=== PATIENT | female | born 1945 | race Caucasian/White ===

== ENCOUNTER 2016-11-30 09:40 | Outpatient (CLI) | payer MEDICARE, OTHER ==
[2016-11-30 13:06] LABS: BASOPHILS % (AUTO) 0.6 %; EOSINOPHILS # (AUTO) 0.1 10^3/uL (0.0-0.7); EOSINOPHILS % (AUTO) 1.5 %; HGB - HEMOGLOBIN 12.5 g/dL (12.0-16.0); LYMPHOCYTES % (AUTO) 30.8 %; MEAN CORPUSCULAR HGB CONC 33.9 g/dL (32.0-36.0); MEAN CORPUSCULAR VOLUME 88.5 fL (81.0-99.0); MEAN PLATELET VOLUME 8.2 fL (7.9-10.8); MONOCYTES # (AUTO) 0.4 10^3/uL (0.0-1.0); NEUTROPHILS # (AUTO) 3.9 10^3/uL (1.5-6.6); NEUTROPHILS % (AUTO) 61.1 %; NUCLEATED RED BLOOD CELLS AUTO 0.1 /100WBC; RED BLOOD COUNT 4.18 10^6/uL (4.20-5.40); RED CELL DISTRIBUTION WIDTH 13.3 % (12.0-15.0); UNCORRECTED WHITE BLOOD COUNT 6.4 x10^3/uL; WHITE BLOOD COUNT 6.4 x10^3/uL (4.8-10.8)
[2016-11-30 14:00] LABS: ALBUMIN/GLOBULIN RATIO 1.6 (1.0-2.2); BUN - BLOOD UREA NITROGEN 18 mg/dL (6-20); CALCIUM 9.3 mg/dL (8.5-10.3); CARBON DIOXIDE - CO2 27 mmol/L (21-32); CHLORIDE 105 mmol/L (101-111); CHOL/HDL RATIO 3.3 (<4.4); CHOLESTEROL 190 mg/dL; CREATININE 0.6 mg/dL (0.4-1.0); GFR - MDRD 99 (>89); GLUCOSE 90 mg/dL (70-100); HDL CHOLESTEROL 57 mg/dL; LDL/HDL RATIO 1.9 (<4.4); POTASSIUM 4.2 mmol/L (3.5-5.0); SODIUM 140 mmol/L (135-145); TOTAL PROTEIN 7.5 g/dL (6.7-8.2); TRIGLYCERIDES 125 mg/dL; VLDL CHOLESTEROL 25 mg/dL
== END 2016-11-30 09:41 | disposition home or self-care (01) ==
LOC: LAB.WCP 09:40
PROVIDERS: ATTEND Family Medicine
DX: M85.80 Other specified disorders of bone density and structure, unspecified site (principal)
CPT/HCPCS: 36415; 80053; 80061; 85025

== ENCOUNTER 2016-12-10 08:13 | Outpatient (CLI) | payer MEDICARE, OTHER ==
--- NOTE | 2016-12-11 15:37 | Mammography Report ---
DIGITAL SCREENING MAMMOGRAM: 12/10/2016 CLINICAL INDICATION: A 71-year-old nulliparous patient with history of bilateral augmentation for sc reening. COMPARISON: 12/2015, 05/2014, 04/2012, 04/2011. TECHNIQUE: Routine CC and MLO projections were obtained of the breasts as well as bilateral implant displaced views. FINDINGS: The breasts again demonstrate heterogeneously dense fibroglandular parenchyma bilaterally. Coarse, typically benign calcifications are present. Bilateral subpectoral silicone implants are s table. No suspicious masses, clustered microcalcifications, or regions of architectural distortion a re identified. IMPRESSION: BENIGN FINDINGS. RECOMMENDATION: Routine annual screening unless otherwise clinically indicated. BI-RADS category 2, benign findings. STANDARD QUALIFYING STATEMENTS 1. This examination was reviewed with the aid of Computer-Aided Detection (CAD). 2. A negative or benign imaging report should not delay biopsy if clinically suspicious findings are present. Consider surgical consultation if warranted. More than 5% of cancers are not identified by i maging. 3. Dense breasts may obscure an underlying neoplasm. JOB #: [id number] EXT JOB #:[id number]
== END 2016-12-10 08:14 | disposition home or self-care (01) ==
LOC: DI 08:13
PROVIDERS: ATTEND Family Medicine
DX: Z12.31 Encounter for screening mammogram for malignant neoplasm of breast (principal)
CPT/HCPCS: 77067

== ENCOUNTER 2017-11-16 09:34 | Outpatient (CLI) | payer MEDICARE, OTHER ==
[2017-11-16 13:49] LABS: BASOPHILS % (AUTO) 0.7 %; EOSINOPHILS # (AUTO) 0.2 10^3/uL (0.0-0.7); EOSINOPHILS % (AUTO) 2.4 %; HGB - HEMOGLOBIN 12.4 g/dL (12.0-16.0); LYMPHOCYTES # (AUTO) 2.2 10^3/uL (1.5-3.5); LYMPHOCYTES % (AUTO) 34.8 %; MEAN CORPUSCULAR HGB CONC 34.4 g/dL (32.0-36.0); MEAN CORPUSCULAR VOLUME 87.3 fL (81.0-99.0); MEAN PLATELET VOLUME 7.9 fL (7.9-10.8); MONOCYTES # (AUTO) 0.4 10^3/uL (0.0-1.0); NEUTROPHILS # (AUTO) 3.5 10^3/uL (1.5-6.6); NEUTROPHILS % (AUTO) 56.1 %; PLT - PLATELET COUNT 281 10^3/uL (130-450); RED BLOOD COUNT 4.14 10^6/uL (4.20-5.40); RED CELL DISTRIBUTION WIDTH 13.2 % (12.0-15.0); WHITE BLOOD COUNT 6.3 x10^3/uL (4.8-10.8)
[2017-11-16 14:30] LABS: ALBUMIN/GLOBULIN RATIO 1.2 (1.0-2.2); ALKALINE PHOSPHATASE 60 IU/L (42-121); ALT ALANINE AMINOTRANSFERASE 14 IU/L (10-60); AST ASPARTATE AMINOTRANSFERASE 19 IU/L (10-42); BILIRUBIN,TOTAL 1.1 mg/dL (0.2-1.0); BUN - BLOOD UREA NITROGEN 19 mg/dL (6-20); CALCIUM 9.1 mg/dL (8.5-10.3); CARBON DIOXIDE - CO2 27 mmol/L (21-32); CHLORIDE 104 mmol/L (101-111); CHOL/HDL RATIO 3.3 (<4.4); CHOLESTEROL 208 mg/dL; CREATININE 0.7 mg/dL (0.4-1.0); GFR - MDRD 82 (>89); GLUCOSE 88 mg/dL (70-100); HDL CHOLESTEROL 64 mg/dL; LDL CHOLESTEROL,CALCULATED 125 mg/dL; SODIUM 137 mmol/L (135-145); TOTAL PROTEIN 7.3 g/dL (6.7-8.2); VLDL CHOLESTEROL 19 mg/dL
== END 2017-11-16 09:35 | disposition home or self-care (01) ==
LOC: LAB.WCP 09:34
PROVIDERS: ATTEND Family Medicine
DX: M89.9 Disorder of bone, unspecified (principal); E78.5 Hyperlipidemia, unspecified; Z79.899 Other long term (current) drug therapy
CPT/HCPCS: 36415; 80053; 80061; 83721; 85025

== ENCOUNTER 2017-12-15 09:04 | Outpatient (CLI) | payer MEDICARE, OTHER ==
--- NOTE | 2017-12-16 17:09 | Mammography Report ---
Procedure Date: 12/15/2017 Accession Number: [id number] / [id number] Procedure: MGN - Screening Mammo Dig w/Implants CPT Code: FULL RESULT: EXAM: Screening Mammo Dig w/Implants DATE: 12/15/2017 9:46 AM CLINICAL HISTORY: 72-year-old nulliparous female with silicone breast implants. TECHNIQUE: Bilateral CC and MLO views were obtained. Bilateral implant displaced views in CC and MLO projections were also obtained. COMPARISON: 12/10/2016, 12/26/2015, 05/15/2014, 04/15/2012. FINDINGS: The breasts demonstrate heterogeneously dense fibroglandular parenchyma bilaterally. Breast implants appear intact throughout the visualized portion. Coarse typically benign breast calcifications are seen on the right. No suspicious masses, clustered microcalcifications, or regions of architectural distortion are identified. IMPRESSION: Benign findings RECOMMENDATION: Routine annual screening unless otherwise clinically indicated. BIRADS CATEGORY 2: Benign findings STANDARD QUALIFYING STATEMENTS: 1. This examination was reviewed with the aid of Computer-Aided Detection (CAD). 2. A negative or benign imaging report should not delay biopsy if clinically suspicious findings are present. Consider surgical consultation if warrented. More than 5% of cancers are not identified by imaging. 3. Dense breasts may obscure an underlying neoplasm.
== END 2017-12-15 09:05 | disposition home or self-care (01) ==
LOC: DI.N 09:04
PROVIDERS: ATTEND Radiology Diagnostic Radiology
DX: Z12.31 Encounter for screening mammogram for malignant neoplasm of breast (principal); Z98.82 Breast implant status
CPT/HCPCS: 77067

== ENCOUNTER 2017-12-27 09:59 | Outpatient (CLI) | payer MEDICARE, OTHER ==
--- NOTE | 2017-12-27 12:30 | DEXA Report ---
Reason: BONE DISORDER Procedure Date: 12/27/2017 Accession Number: [id number] / [id number] Procedure: DEX - Dexa Spine and/or Hip CPT Code: FULL RESULT: EXAM: DUAL EMISSION X-RAY ABSORPTIOMETRY (DXA) SCAN EXAM DATE: 12/27/2017 10:28 AM. CLINICAL HISTORY: 72-year-old, right-handed female with history of osteoporosis in her mother. COMPARISON: BONE DENSITY COMPLETE 12/26/2015. ADDITIONAL PATIENT INFORMATION: No history of high-risk medications. TECHNIQUE: Dual energy x-ray absorptiometry (DXA) was performed on a [employer] System. Regions measured at the AP spine, femoral neck, and if needed, forearm. TECHNIQUE LIMITATIONS/EXCLUSIONS: Adequate technique. FINDINGS: Lumbar Spine: Bone mineral density 0.968 g/sq cm, T-score -1.8, Z-score -0.5. Bone mineral density change from previous: -1.7%. Femoral Neck: Bone mineral density 0.817 g/sq cm, T-score -1.6, Z-score -0.1. Total Hip: Bone mineral density 0.870 g/sq cm, T-score -1.1, Z-score 0.2. Bone mineral density change from previous: 0.9%. Least significant change (LSC): Spine: 0.022 g/cm2, Hip: 0.027 g/cm2, Forearm: 0.015 g/cm2 IMPRESSION: Osteopenia. World Health Organization (WHO) Reporting guidelines (based on lowest BMD) for postmenopausal and perimenopausal women, men age 50 years and older: Normal: T-score at or greater than -1.0 Osteopenia: T-score between -1.1 to -2.4 Osteoporosis: T-score at or less than -2.5 RADIA
== END 2017-12-27 10:00 | disposition home or self-care (01) ==
LOC: DI 09:59
PROVIDERS: ATTEND Family Medicine
DX: M85.89 Other specified disorders of bone density and structure, multiple sites (principal); Z82.62 Family history of osteoporosis
CPT/HCPCS: 77080

== ENCOUNTER 2018-02-05 10:04 | Emergency (ER) | payer MEDICARE, OTHER ==
[2018-02-05 10:51] LABS: BILIRUBIN,URINE NEGATIVE (NEGATIVE); KETONES,URINE (UA) TRACE mg/dL (NEGATIVE); LEUKOCYTE ESTERASE, URINE NEGATIVE (NEGATIVE); PH,URINE 5.5 PH (5.0-7.5)
[2018-02-05 10:56] LABS: CLARITY,URINE CLEAR (CLEAR)
[2018-02-05 10:59] LABS: BACTERIA,URINE Rare /HPF (None Seen); SQUAMOUS EPITHELIAL CELL,UR RARE Squamous (<= Few)
--- NOTE | 2018-02-05 11:17 | ED Physician Documentation ---
PD HPI FEMALE - Stated complaint Stated Complaint: FEMALE - Chief complaint Chief Complaint: UTI - History obtained from History obtained from: Patient, Family - History of Present Illness Timing - onset: How many weeks ago (3) Timing - duration: Weeks (3) Timing - details: Gradual onset, Still present, Waxing and waning Associated symptoms: Back pain, Dysuria, Urinary frequency Similar symptoms before: Diagnosis (UTI) Recently seen: Clinic - Additional information Additional information: 72-year-old female with a history of urinary tract infections previously has done well for the past 6 years and about 3 weeks ago she developed symptoms she took a course of antibiotic empirically and had some resolution of her symptoms. Within a week to 10 days she had recurrence of symptoms with urinary urgency and right flank pain. She went into see her primary care doctor and had a urinalysis done which was normal. She has been given some medication for her overactive bladder and this does not seem to have helped. She took a dose of pyridium this morning and vomited. She states that this morning she has had severe flank pain an 8 out of 10. Review of Systems Constitutional: denies: Fever Eyes: denies: Decreased vision Ears: denies: Ear pain Nose: denies: Congestion Throat: denies: Sore throat Cardiac: denies: Chest pain / pressure, Palpitations Respiratory: denies: Dyspnea, Cough GI: reports: Abdominal Pain, Nausea, Vomiting : reports: Dysuria, Frequency Skin: denies: Rash Musculoskeletal: reports: Back pain. denies: Neck pain, Extremity pain, Joint pain Neurologic: denies: Generalized weakness, Focal weakness, Numbness PD PAST MEDICAL HISTORY - Past Medical History Past Medical History: Yes Cardiovascular: High cholesterol Respiratory: None Endocrine/Autoimmune: None GI: Colon polyps : None HEENT: None Psych: None Musculoskeletal: None Derm: None - Past Surgical History Past Surgical History: Yes General: Colonoscopy Ortho: Other - Present Medications Home Medications: Ambulatory Orders Medication Instructions Recorded Confirmed RX: Pravastatin Sodium 40 mg PO QPM 01/11/15 02/05/18 Nitrofurantoin Monohyd/M-Cryst 1 cap PO BID 02/05/18 02/05/18 [Macrobid 100 mg Capsule] Phenazopyridine HCl [Pyridium] 1 tab PO BID PRN 02/05/18 02/05/18 RX: Oxybutynin [Ditropan] 1 tab PO DAILY 10/06/18 10/06/18 - Allergies Allergies/Adverse Reactions: Allergies Allergy/AdvReac Type Severity Reaction Status Date / Time No Known Drug Allergies Allergy Verified 02/05/18 10:33 - Social History Does the pt smoke?: No Smoking Status: Never smoker Does the pt drink ETOH?: Yes ETOH Use: Wine Does the pt have substance abuse?: No - Immunizations Immunizations are current?: Yes PD ED PE NORMAL - Vitals Vital signs reviewed: Yes (systolic hypertension ) - General General: Alert and oriented X 3, No acute distress, Well developed/nourished - HEENT HEENT: Atraumatic, PERRL, EOMI - Neck Neck: Supple, no meningeal sign - Cardiac Cardiac: RRR, No murmur - Respiratory Respiratory: No respiratory distress, Clear bilaterally - Abdomen Abdomen: Soft, Non tender - Back Back: No CVA TTP, No spinal TTP - Derm Derm: Normal color, Warm and dry, No rash - Extremities Extremities: No deformity, No edema - Neuro Neuro: Alert and oriented X 3, chemical pumper 2-12 intact, No motor deficit, No sensory deficit, Normal speech Eye Opening: Spontaneous Motor: Obeys Commands Verbal: Oriented GCS Score: 15 - Psych Psych: Normal mood, Normal affect Results - Vitals Vitals: Vital Signs - 24 hr 02/05/18 10:25 Temperature 36.0 C L Heart Rate 72 Respiratory 17 Rate Blood Pressure 145/56 H O2 Saturation 100 Oxygen O2 Source Room air - Labs Labs: Laboratory Tests 02/05/18 10:47 Urine Color ORANGE Urine Clarity CLEAR Urine pH 5.5 Ur Specific [place] 1.020 Urine Protein Not Reportable Urine Glucose (UA) Not Reportable Urine Ketones TRACE Urine Occult Blood Not Reportable Urine Nitrite Not Reportable Urine Bilirubin NEGATIVE Urine Urobilinogen Not Reportable Ur Leukocyte Esterase NEGATIVE Urine RBC 6-10 H Urine WBC 0-3 Ur Squamous Epith Cells RARE Squamous Urine Bacteria Rare Ur Microscopic Review INDICATED Urine Culture Comments Not Reportable - Rads (name of study) CT ab/pel without Radiology: Prelim report reviewed (Impression: 1. 4 mm right UVJ calculus with upstream acute hydroureternephrosis. 2Small nonobstructing left renal calculi. 3Diverticulosis. 4 Other findings as noted above.), EMP read indepedently, See rad report Procedures - Bedside sono Bedside sono by EMP: With use of bedside ultrasound the right kidney is imaged it is sonographically nontender and there is obvious hydronephrosis. The bladder is examined and it is not over distended. PD MEDICAL DECISION MAKING - ED course Complexity details: reviewed old records, reviewed results, re-evaluated patient, considered differential, d/w patient, d/w family ED course: 72-year-old female with a history of rheumatoid arthritis has developed symptoms of urinary tract infection with urinary urgency and frequency and she has pain in her right flank as well. She is found to have hydronephrosis on bedside ultrasound exam and a stone in the right ureterovesicular junction. Her urine is negative for evidence of infection. She is treated here in the emergency department with a liter of saline and 30 mg of Toradol intravenously. She does have Tylenol with codeine at home she will use this for pain control and have discussed with her reasons to return to the emergency department especially if she develops fever and reasons to consult with a urologist if her stone does not pass in the next several days. - Sepsis Event Vital Signs: Vital Signs - 24 hr 02/05/18 10:25 Temperature 36.0 C L Heart Rate 72 Respiratory 17 Rate Blood Pressure 145/56 H O2 Saturation 100 Oxygen O2 Source Room air Departure - Departure Disposition: 01 Home, Self Care Clinical Impression: Ureterolithiasis Instructions: ED Stone Renal W Colic Follow-Up: Alfred Hayden DO [Primary Care Provider] - Comments: Take your Tylenol with codeine as needed for pain. Drink lots of extra fluids and expect your stone to pass within this week. If you continue to have pain by the middle of next week start trying to get a hold of a urologist for follow-up. If you develop a fever this is not expected and you should return to the ED. Discharge Date/Time: 02/05/18 13:29
[2018-02-05 12:11] LABS: BASOPHILS # (AUTO) 0.1 10^3/uL (0.0-0.1); BASOPHILS % (AUTO) 0.6 %; EOSINOPHILS % (AUTO) 0.1 %; HGB - HEMOGLOBIN 12.8 g/dL (12.0-16.0); LYMPHOCYTES # (AUTO) 0.9 10^3/uL (1.5-3.5); LYMPHOCYTES % (AUTO) 5.9 %; MEAN CORPUSCULAR HEMOGLOBIN 29.6 pg (27.0-31.0); MEAN CORPUSCULAR HGB CONC 33.9 g/dL (32.0-36.0); MEAN CORPUSCULAR VOLUME 87.5 fL (81.0-99.0); MEAN PLATELET VOLUME 7.4 fL (7.9-10.8); MONOCYTES # (AUTO) 0.4 10^3/uL (0.0-1.0); MONOCYTES % (AUTO) 2.6 %; NEUTROPHILS % (AUTO) 90.8 %; PLT - PLATELET COUNT 286 10^3/uL (130-450); RED BLOOD COUNT 4.33 10^6/uL (4.20-5.40); RED CELL DISTRIBUTION WIDTH 13.5 % (12.0-15.0); WHITE BLOOD COUNT 15.4 x10^3/uL (4.8-10.8)
[2018-02-05 12:23] LABS: ALBUMIN 4.8 g/dL (3.2-5.5); ALBUMIN/GLOBULIN RATIO 1.5 (1.0-2.2); BILIRUBIN,TOTAL 0.6 mg/dL (0.2-1.0); CALCIUM 9.1 mg/dL (8.5-10.3); CREATININE 0.8 mg/dL (0.4-1.0); TOTAL PROTEIN 7.9 g/dL (6.7-8.2)
[2018-02-05] MEDS ORDERED: KETOROLAC 60 MG/2 ML VIAL IVP STA (12:49)
--- NOTE | 2018-02-05 12:54 | CT Report ---
Reason: R flank pain hydro on bedside hematuria Procedure Date: 02/05/2018 Accession Number: [id number] / [id number] Procedure: CT - Abdomen/Pelvis W/O CPT Code: FULL RESULT: EXAM: CT ABDOMEN AND PELVIS EXAM DATE: 02/05/2018 12:21 PM. CLINICAL HISTORY: R flank pain hydro on bedside hematuria. COMPARISONS: None. TECHNIQUE: Routine helical CT imaging was performed through the abdomen and pelvis. IV contrast: None. Enteric contrast: No. Reconstructions: Coronal and sagittal. In accordance with CT protocol optimization, one or more of the following dose reduction techniques were utilized for this exam: automated exposure control, adjustment of mA and/or KV based on patient size, or use of iterative reconstructive technique. FINDINGS: Lung Bases: Clear. No pericardial effusion. Partially imaged breast prostheses. Liver: Discrete 13 mm segment 4 hypodensity, nonspecific but possibly cyst. Ultrasound could be performed for confirmation. There is an additional tiny hypodensity in segment 5 (3/25), also nonspecific but possibly cyst. Gallbladder/Bile Ducts: Unremarkable. Spleen: Normal. Pancreas: Normal. Adrenal Glands: Normal. Kidneys: Tiny nonobstructing left renal calculi measuring 3 mm at the lower pole and 2 mm at the midpole. No left hydronephrosis or contour deforming mass. There is moderate right hydronephrosis and mild hydroureter. There is asymmetric mild to moderate right perinephric stranding. There is a 4 mm calculus at the right UVJ. Peritoneal Cavity/Bowel: No free air or free fluid. There is sigmoid diverticulosis without focal evidence of acute diverticulitis. The appendix is well visualized and normal. Pelvic Organs: Bladder is decompressed. Uterus is absent. Adnexal structures are unremarkable. Vasculature: No aneurysms or other significant abnormality. Scattered atherosclerotic arterial calcifications. Bones: No significant abnormality. Other: None. IMPRESSION: 1. 4 mm right UVJ calculus with upstream acute hydroureteronephrosis. 2. Small nonobstructing left renal calculi. 3. Diverticulosis. 4. Other findings as noted above. RADIA
[2018-02-05 13:25] VITALS: BP 139/51
== END 2018-02-05 13:29 | disposition home or self-care (01) ==
LOC: ED 10:04
DX: N13.2 Hydronephrosis with renal and ureteral calculous obstruction (principal)
CPT/HCPCS: 36415; 74176; 80053; 81001; 81003; 83690; 85025; 87086; 96374; 99283; 99284

== ENCOUNTER 2018-12-06 10:01 | Outpatient (CLI) | payer MEDICARE, OTHER ==
[2018-12-06 10:18] LABS: BASOPHILS % (AUTO) 0.2 %; EOSINOPHILS # (AUTO) 0.1 10^3/uL (0.0-0.7); EOSINOPHILS % (AUTO) 2.1 %; HGB - HEMOGLOBIN 12.3 g/dL (12.0-16.0); LYMPHOCYTES # (AUTO) 2.3 10^3/uL (1.5-3.5); LYMPHOCYTES % (AUTO) 37.7 %; MEAN CORPUSCULAR HEMOGLOBIN 29.5 pg (27.0-31.0); MEAN CORPUSCULAR HGB CONC 32.4 g/dL (32.0-36.0); MEAN CORPUSCULAR VOLUME 91.1 fL (81.0-99.0); MEAN PLATELET VOLUME 8.9 fL (7.9-10.8); MONOCYTES # (AUTO) 0.4 10^3/uL (0.0-1.0); MONOCYTES % (AUTO) 5.8 %; NEUTROPHILS # (AUTO) 3.4 10^3/uL (1.5-6.6); PLT - PLATELET COUNT 260 10^3/uL (130-450); RED BLOOD COUNT 4.17 10^6/uL (4.20-5.40); WHITE BLOOD COUNT 6.2 x10^3/uL (4.8-10.8)
[2018-12-06 14:21] LABS: ALBUMIN 4.4 g/dL (3.2-5.5); ALBUMIN/GLOBULIN RATIO 1.5 (1.0-2.2); ALKALINE PHOSPHATASE 59 IU/L (42-121); ALT ALANINE AMINOTRANSFERASE 15 IU/L (10-60); AST ASPARTATE AMINOTRANSFERASE 19 IU/L (10-42); BILIRUBIN,TOTAL 0.9 mg/dL (0.2-1.0); BUN - BLOOD UREA NITROGEN 15 mg/dL (6-20); CALCIUM 9.2 mg/dL (8.5-10.3); CARBON DIOXIDE - CO2 24 mmol/L (21-32); CHLORIDE 104 mmol/L (101-111); CHOL/HDL RATIO 3.7 (<4.4); CHOLESTEROL 225 mg/dL; CREATININE 0.7 mg/dL (0.4-1.0); GFR - MDRD 82 (>89); GLUCOSE 99 mg/dL (70-100); HDL CHOLESTEROL 61 mg/dL; LDL CHOLESTEROL,CALCULATED 140 mg/dL; LDL/HDL RATIO 2.3 (<4.4); SODIUM 140 mmol/L (135-145); TOTAL PROTEIN 7.4 g/dL (6.7-8.2); VLDL CHOLESTEROL 24 mg/dL
== END 2018-12-06 10:02 | disposition home or self-care (01) ==
LOC: LAB 10:01
PROVIDERS: ATTEND Family Medicine
DX: E78.5 Hyperlipidemia, unspecified (principal); Z13.29 Encounter for screening for other suspected endocrine disorder; Z79.899 Other long term (current) drug therapy
CPT/HCPCS: 36415; 80053; 80061; 83721; 84443; 85025

== ENCOUNTER 2018-12-19 14:15 | Outpatient (CLI) | payer MEDICARE, OTHER ==
--- NOTE | 2018-12-20 08:45 | Mammography Report ---
Reason: SCREENING MAMMO Procedure Date: 12/19/2018 Accession Number: [id number] / [id number] Procedure: SHIRA - Screening Mammo Impl w/[employer] CPT Code: FULL RESULT: EXAM: Screening Mammo Implant w/[employer]us DATE: 12/19/2018 3:03 PM CLINICAL HISTORY: Routine screening. No reported personal or family history of breast cancer. TECHNIQUE: (B) - Bilateral CC and MLO views were obtained. COMPARISON: 12/15/2017 through 04/15/2012. PARENCHYMAL PATTERN: (D) - The breasts demonstrate heterogeneously dense fibroglandular parenchyma bilaterally. FINDINGS: Bilateral breasts: There are subpectoral silicone implants with smooth visible capsular margins. There are no suspicious masses, calcifications, or areas of distortion. IMPRESSION: Benign findings. BI-RADS category 2. RECOMMENDATION: (ANNUAL) - Recommend routine annual screening mammography. BI-RADS CATEGORY: (2) - Benign Findings. STANDARD QUALIFYING STATEMENTS: 1. This examination was not reviewed with the aid of Computer-Aided Detection (CAD). 2. A negative or benign imaging report should not preclude biopsy if clinically suspicious findings are present. 3. Dense breasts may obscure an underlying neoplasm. 4. This examination was reviewed with the aid of 3D breast imaging (tomosynthesis).
== END 2018-12-19 14:16 | disposition home or self-care (01) ==
LOC: DI 14:15
DX: Z12.31 Encounter for screening mammogram for malignant neoplasm of breast (principal); Z98.82 Breast implant status
CPT/HCPCS: 77063; 77067

== ENCOUNTER 2019-12-15 12:35 | Outpatient (CLI) | payer MEDICARE, OTHER ==
--- NOTE | 2019-12-18 11:41 | Mammography Report ---
BILATERAL DIGITAL SCREENING MAMMOGRAM 3D/2D WITH AUGMENTATION: 12/15/2019 CLINICAL: Routine screening. Comparison is made to exams dated: 12/19/2018 mammogram, 12/15/2017 mammogram, 12/10/2016 mammogram, an d 12/26/2015 mammogram - [facility]. The tissue of both breasts is heterogeneously dense. This may lower the sensitivity of mammography. Bilateral breast implants are stable and intact. There are benign calcifications in the right breast . No significant masses, calcifications, or other findings are seen in either breast. There has been no significant interval change. IMPRESSION: BENIGN There is no mammographic evidence of malignancy. A 1 year screening mammogram is recommended. This exam was interpreted at Station ID: [id number]. NOTE: For mammograms, a report in lay terms will be sent to the patient. Approximately 15% of breast malignancies will not be visualized mammographically. In the management of a palpable breast mass, a negative mammogram must not discourage biopsy of a clinically suspicious lesion. Electronically Signed By: Yosi Moser M.D. [facility] [place]:12/15/2019 17:17:55 ACR BI-RADS Category 2: Benign Finding(s) 3342F PARENCHYMAL PATTERN: (D) - The breast(s) demonstrate(s) heterogeneously dense fibroglandular tiki browne. BI-RADS CATEGORY: (2) - 2 RECOMMENDATION: (ANNUAL) - Recommend routine annual screening mammography. [id number] 1 year screening LATERALITY: (B)
== END 2019-12-15 12:36 | disposition home or self-care (01) ==
LOC: DI 12:35
DX: Z12.31 Encounter for screening mammogram for malignant neoplasm of breast (principal)
CPT/HCPCS: 77063; 77067

== ENCOUNTER 2019-12-20 08:16 | Outpatient (CLI) | payer MEDICARE, OTHER ==
[2019-12-20] MEDS ORDERED: GADOBUTROL 7.5 MMOL/7.5 ML VIAL ONE (08:27)
[2019-12-20] MEDS ORDERED: GADOBUTROL 7.5 MMOL/7.5 ML VIAL IVP ONE (08:55)
--- NOTE | 2019-12-20 11:50 | MRI Report ---
PROCEDURE: Brain W/O INDICATIONS: NUMBNESS AND TINGLING RT ARM TECHNIQUE: Noncontrast axial T1 spin echo, axial T2 fast spin echo, sagittal and axial FLAIR, coronal T2 fast sp in echo, axial gradient echo, axial diffusion and ADC through the brain. COMPARISON: None. FINDINGS: Image quality: Excellent. CSF Spaces: Basal cisterns are patent. No extra-axial fluid collections. Ventricles are normal in size and shape. Brain: No acute intracranial hemorrhage. There is an extra-axial low T2 intensity focus overlying th e left anterior frontal lobe, measuring roughly 10 mm, with dural tails Mild diffuse cerebral volume loss. Mild degree of patchy high FLAIR signal within the periventricular and subcortical white matter . Daniel/white matter interface is normal. Brainstem appears normal. Diffusion-weighted images demons trate no acute ischemic insult. No chronic ischemic insults. Normal intravascular flow voids are pr esent. Skull and face: Calvarium has normal marrow signal. Orbits appear normal. Sinuses: Sinuses and mastoids are clear. IMPRESSION: 1. Mild volume loss and small vessel ischemic disease. 2. Probable left frontal meningioma; confirmation with post contrast-enhanced brain MRI is recommende d. Reviewed by: Anderson Bliss MD on 12/20/2019 11:48 AM PDT Approved by: Anderson Bliss MD on 12/20/2019 11:48 AM PDT Station ID: [id number]
== END 2019-12-20 08:17 | disposition home or self-care (01) ==
LOC: DI 08:16
PROVIDERS: ATTEND Family Medicine
DX: R90.89 Other abnormal findings on diagnostic imaging of central nervous system (principal); I67.89 Other cerebrovascular disease
CPT/HCPCS: 70551; A9585

== ENCOUNTER 2019-12-28 10:38 | Outpatient (CLI) | payer MEDICARE, OTHER ==
--- NOTE | 2019-12-29 09:23 | Ultrasound Report ---
PROCEDURE: Carotid Doppler Complete INDICATIONS: NUMBNESS AND TINGLING RT ARM TECHNIQUE: Color and pulse Doppler interrogation was performed of both carotid systems, with image documentation and velocity measurements. COMPARISON: Brain MRI 12/20/2019 reviewed. FINDINGS: Right side: Common carotid artery peak systolic velocity: 78 cm/sec. Internal carotid artery peak systolic velocity: 104 cm/sec. Internal carotid artery end diastolic velocity: 26 cm/sec. External carotid artery peak systolic velocity: 73 cm/sec. ICA/CCA peak systolic ratio: 1.3 . Daniel scale imaging description: No appreciable calcific or soft plaque Percent internal carotid artery stenosis: None found . Vertebral artery: Flow direction is antegrade. Left side: Common carotid artery peak systolic velocity: 83 cm/sec. Internal carotid artery peak systolic velocity: 126 cm/sec. Internal carotid artery end diastolic velocity: 35 cm/sec. External carotid artery peak systolic velocity: 71 cm/sec. ICA/CCA peak systolic ratio: 1.5 . Daniel scale imaging description: No calcific or soft plaque found. Percent internal carotid artery stenosis: None identified . Vertebral artery: Flow direction is antegrade. IMPRESSION: No stenosis identified over the proximal internal carotid arteries bilaterally. The estimate of stenosis included in the report of the imaging study was calculated using the NASCET method Reviewed by: Erick Singh MD on 12/29/2019 9:22 AM PDT Approved by: Erick Singh MD on 12/29/2019 9:22 AM PDT Station ID: [id number]
== END 2019-12-28 10:39 | disposition home or self-care (01) ==
LOC: DI 10:38
PROVIDERS: ATTEND Family Medicine
DX: R20.2 Paresthesia of skin (principal)
CPT/HCPCS: 93880

== ENCOUNTER 2020-10-07 11:11 | Outpatient (CLI) | payer MEDICARE, OTHER ==
[2020-10-07 11:49] LABS: CREATININE 0.6 mg/dL (0.4-1.0)
[2020-10-07] MEDS ORDERED: GADOBUTROL 10 MMOL/10 ML VIAL ONE (12:02)
--- NOTE | 2020-10-07 14:51 | MRI Report ---
PROCEDURE: Brain W/WO INDICATIONS: MENINGIOMA BRAIN, TINNITUS CONTRAST: IV CONTRAST: Gadavist ml: 7.2 TECHNIQUE: Noncontrast axial T1 spin echo, axial T2 fast spin echo, sagittal and axial FLAIR, coronal T2 fast sp in echo, axial gradient echo, axial diffusion and ADC through the brain. After the administration of contrast, axial and coronal T1 spin echo with fat saturation through the brain. COMPARISON: Brain MRI dated 12/20/2019 FINDINGS: Image quality: Excellent. CSF spaces: Basal cisterns are patent. No extra-axial fluid collections. Ventricles are normal in size and shape. Brain: No midline shift. No intracranial bleeds. The previously identified 10 mm diameter dural bas ed low T2 intensity focus is unchanged, and demonstrates no significant enhancement following intrave nous contrast administration. No abnormal intracranial enhancement. There is cerebral volume loss fo r age. There is periventricular white matter chronic small vessel ischemic change. The brainstem ap pears normal. Diffusion-weighted images demonstrate no acute ischemic insults. No chronic ischemic insults. Normal intravascular flow voids are present. Skull and face: Calvarial marrow is normal in signal. Orbits appear normal. Sinuses: Sinuses and mastoids appear clear. IMPRESSION: 1. No significant change in small left frontal meningioma which appears to be ossified. 2. Mild volume loss and minimal small vessel ischemic disease. 3. No acute process. No recent infarct. Reviewed by: Anderson Bliss MD on 10/07/2020 2:50 PM PDT Approved by: Anderson Bliss MD on 10/07/2020 2:50 PM PDT Station ID: [id number]
[2020-10-07] MEDS ORDERED: GADOBUTROL 10 MMOL/10 ML VIAL IVP ONE (15:33)
--- NOTE | 2020-10-07 15:35 | MRI Report ---
PROCEDURE: Angio Brain W/O (MRA) INDICATIONS: MENINGIOMA BRAIN, TINNITUS TECHNIQUE: Noncontrast axial 3-D [id number] MR angiogram, with 3-dimensional maximum intensity projection (M IP) reformats of the internal carotid arteries and posterior circulation then performed. COMPARISON: None. FINDINGS: Image quality: Excellent. Anterior circulation: Intracranial internal carotid arteries demonstrate normal size and intralumina l flow signal. The flow within the paired anterior cerebral arteries is normal and symmetric. The f low within the middle cerebral arteries is normal and symmetric. The anterior communicating artery i s seen. No stenoses, occlusions, or aneurysms. Posterior circulation: Visualized portions of the vertebral arteries demonstrate normal caliber, and join to form a normal appearing basilar artery. The flow within the posterior cerebral arteries is normal and symmetric. No stenoses, occlusions, or aneurysms. IMPRESSION: Negative cerebral MR angiography. Reviewed by: Anderson Bliss MD on 10/07/2020 3:33 PM PDT Approved by: Anderson Bliss MD on 10/07/2020 3:33 PM PDT Station ID: [id number]
== END 2020-10-07 11:12 | disposition home or self-care (01) ==
LOC: LAB 11:11 → DI 11:12
PROVIDERS: ATTEND Family Medicine
DX: D32.0 Benign neoplasm of cerebral meninges (principal); H93.A2 Pulsatile tinnitus, left ear
CPT/HCPCS: 36415; 70544; 70553; 82565; A9585

== ENCOUNTER 2020-10-22 08:00 | Outpatient (CLI) | payer MEDICARE, OTHER ==
[2020-10-22 11:39] LABS: BASOPHILS % (AUTO) 0.5 %; EOSINOPHILS # (AUTO) 0.1 10^3/uL (0.0-0.7); EOSINOPHILS % (AUTO) 1.5 %; HCT - HEMATOCRIT 39.5 % (37.0-47.0); HGB - HEMOGLOBIN 12.2 g/dL (12.0-16.0); LYMPHOCYTES # (AUTO) 2.3 10^3/uL (1.5-3.5); LYMPHOCYTES % (AUTO) 37.3 %; MEAN CORPUSCULAR HEMOGLOBIN 28.8 pg (27.0-31.0); MEAN CORPUSCULAR HGB CONC 30.9 g/dL (32.0-36.0); MEAN CORPUSCULAR VOLUME 93.2 fL (81.0-99.0); MEAN PLATELET VOLUME 9.6 fL (7.9-10.8); MONOCYTES # (AUTO) 0.3 10^3/uL (0.0-1.0); MONOCYTES % (AUTO) 4.6 %; NEUTROPHILS # (AUTO) 3.4 10^3/uL (1.5-6.6); NEUTROPHILS % (AUTO) 55.9 %; PLT - PLATELET COUNT 282 10^3/uL (130-450); RED BLOOD COUNT 4.24 10^6/uL (4.20-5.40); RED CELL DISTRIBUTION WIDTH 13.2 % (12.0-15.0); WHITE BLOOD COUNT 6.1 x10^3/uL (4.8-10.8)
[2020-10-22 12:16] LABS: ALBUMIN 4.4 g/dL (3.2-5.5); ALBUMIN/GLOBULIN RATIO 1.4 (1.0-2.2); ALKALINE PHOSPHATASE 61 IU/L (42-121); ALT ALANINE AMINOTRANSFERASE 19 IU/L (10-60); AST ASPARTATE AMINOTRANSFERASE 22 IU/L (10-42); BILIRUBIN,TOTAL 0.8 mg/dL (0.2-1.0); BUN - BLOOD UREA NITROGEN 13 mg/dL (6-20); CALCIUM 9.5 mg/dL (8.5-10.3); CARBON DIOXIDE - CO2 26 mmol/L (21-32); CHLORIDE 103 mmol/L (101-111); CHOLESTEROL 210 mg/dL; CREATININE 0.6 mg/dL (0.4-1.0); GFR - MDRD 98 (>89); GLUCOSE 100 mg/dL (70-100); HDL CHOLESTEROL 70 mg/dL; LDL CHOLESTEROL,CALCULATED 125 mg/dL; LDL/HDL RATIO 1.8 (<4.4); SODIUM 139 mmol/L (135-145); TOTAL PROTEIN 7.6 g/dL (6.7-8.2); TRIGLYCERIDES 74 mg/dL; VLDL CHOLESTEROL 15 mg/dL
[2020-10-23 13:17] LABS: HEPATITIS C ANTIBODY NON-REACTIVE (NON-REACTIVE)
== END 2020-10-22 23:59 | disposition home or self-care (01) ==
LOC: LAB.WCP 08:00
PROVIDERS: ATTEND Family Medicine
DX: Z01.84 Encounter for antibody response examination (principal); E78.5 Hyperlipidemia, unspecified; K21.9 Gastro-esophageal reflux disease without esophagitis
CPT/HCPCS: 36415; 80053; 80061; 83721; 85025; 86803

== ENCOUNTER 2020-11-11 09:49 | Outpatient (CLI) | payer MEDICARE, OTHER ==
--- NOTE | 2020-11-11 16:14 | DEXA Report ---
PROCEDURE: Dexa Spine and/or Hip INDICATIONS: OSTEOPENIA TECHNIQUE: Dual energy x-ray absorptiometry (DXA) was performed on a [employer] System. Regions measur ed are the AP Spine, femoral neck, and if needed forearm. COMPARISON: DEXA 12/27/2017 FINDINGS: Lumbar Spine: Bone Mineral Density 0.970 g/cm/cm,T score -1.8, compared to -1.8 Left Hip: Bone Mineral Density 0.872 g/cm/cm,T score -1.1, compared to -1.1 Left Femoral Neck: Bone Mineral Density 0.809 g/cm/cm, T score -1.6, compared to -1.6 (T score greater or equal to -1.0: NORMAL) (T score from -1.1 to -2.4: OSTEOPENIA) (T score less than or equal to -2.5 to: OSTEOPOROSIS) Impression: Stable mild to moderate osteopenia within the lumbar spine and femoral neck, minimal in l eft hip. Patients with diagnosis of osteoporosis or osteopenia should have regular bone mineral density assess ment. For those eligible for Medicare, routine testing is allowed once every 2 years. Testing frequ ency can be increased for patients who have rapidly progressing disease or for those who are receivin g medical therapy to restore bone mass. Reviewed by: Suzy Leal MD on 11/11/2020 4:12 PM PDT Approved by: Suzy Leal MD on 11/11/2020 4:12 PM PDT Station ID: [id number]
== END 2020-11-11 09:50 | disposition home or self-care (01) ==
LOC: DI 09:49
PROVIDERS: ATTEND Family Medicine
DX: M85.89 Other specified disorders of bone density and structure, multiple sites (principal)

== ENCOUNTER 2020-12-09 09:48 | Outpatient (CLI) | payer MEDICARE, OTHER ==
--- NOTE | 2020-12-10 16:08 | Mammography Report ---
BILATERAL DIGITAL SCREENING MAMMOGRAM 3D/2D WITH AUGMENTATION: 12/09/2020 CLINICAL: Routine screening. Comparison is made to exams dated: 12/15/2019 mammogram, 12/19/2018 mammogram, 12/15/2017 mammogram, 01/2017 mammogram, 12/26/2015 mammogram - [facility], and 05/15/2014 mammogram - [facility]. The tissue of both breasts is heterogeneously dense. This may lower the sensitivi ty of mammography. Bilateral breast implants are stable and intact. There are benign calcifications in the right breast . No significant masses, calcifications, or other findings are seen in either breast. There has been no significant interval change. IMPRESSION: BENIGN There is no mammographic evidence of malignancy. A 1 year screening mammogram is recommended. This exam was interpreted at Station ID: [id number]. NOTE: For mammograms, a report in lay terms will be sent to the patient. Approximately 15% of breast malignancies will not be visualized mammographically. In the management of a palpable breast mass, a negative mammogram must not discourage biopsy of a clinically suspicious lesion. Electronically Signed By: Jake riddle/richardrad:12/09/2020 11:29:08 ACR BI-RADS Category 2: Benign Finding(s) 3342F PARENCHYMAL PATTERN: (D) - The breast(s) demonstrate(s) heterogeneously dense fibroglandular tiki browne. BI-RADS CATEGORY: (2) - 2 RECOMMENDATION: (ANNUAL) - Recommend routine annual screening mammography. [id number] 1 year screening LATERALITY: (B)
== END 2020-12-09 09:49 | disposition home or self-care (01) ==
LOC: DI 09:48
DX: Z12.31 Encounter for screening mammogram for malignant neoplasm of breast (principal); Z98.82 Breast implant status

== ENCOUNTER 2021-10-29 08:44 | Outpatient (CLI) | payer MEDICARE, OTHER ==
[2021-10-29 08:56] LABS: BASOPHILS % (AUTO) 0.3 %; EOSINOPHILS # (AUTO) 0.1 10^3/uL (0.0-0.7); EOSINOPHILS % (AUTO) 1.5 %; HCT - HEMATOCRIT 36.1 % (37.0-47.0); HGB - HEMOGLOBIN 11.9 g/dL (12.0-16.0); LYMPHOCYTES # (AUTO) 2.3 10^3/uL (1.5-3.5); LYMPHOCYTES % (AUTO) 30.9 %; MEAN CORPUSCULAR HEMOGLOBIN 30.1 pg (27.0-31.0); MEAN CORPUSCULAR VOLUME 91.2 fL (81.0-99.0); MEAN PLATELET VOLUME 8.6 fL (7.9-10.8); MONOCYTES # (AUTO) 0.4 10^3/uL (0.0-1.0); MONOCYTES % (AUTO) 5.4 %; NEUTROPHILS # (AUTO) 4.6 10^3/uL (1.5-6.6); NEUTROPHILS % (AUTO) 61.8 %; PLT - PLATELET COUNT 249 10^3/uL (130-450); RED BLOOD COUNT 3.96 10^6/uL (4.20-5.40); RED CELL DISTRIBUTION WIDTH 12.9 % (12.0-15.0); WHITE BLOOD COUNT 7.4 x10^3/uL (4.8-10.8)
[2021-10-29] MEDS ORDERED: GADOBUTROL 7.5 MMOL/7.5 ML VIAL ONE (09:00)
[2021-10-29 09:12] LABS: ALBUMIN 4.2 g/dL (3.2-5.5); ALBUMIN/GLOBULIN RATIO 1.4 (1.0-2.2); ALKALINE PHOSPHATASE 61 IU/L (42-121); ALT ALANINE AMINOTRANSFERASE 19 IU/L (10-60); AST ASPARTATE AMINOTRANSFERASE 20 IU/L (10-42); BILIRUBIN,TOTAL 0.5 mg/dL (0.2-1.0); BUN - BLOOD UREA NITROGEN 12 mg/dL (6-20); CALCIUM 9.4 mg/dL (8.5-10.3); CARBON DIOXIDE - CO2 27 mmol/L (21-32); CHLORIDE 100 mmol/L (101-111); CHOL/HDL RATIO 2.9 (<4.4); CHOLESTEROL 201 mg/dL; CREATININE 0.7 mg/dL (0.4-1.0); GFR - MDRD 82 (>89); GLUCOSE 101 mg/dL (70-100); HDL CHOLESTEROL 70 mg/dL; LDL CHOLESTEROL,CALCULATED 113 mg/dL; LDL/HDL RATIO 1.6 (<4.4); POTASSIUM 3.8 mmol/L (3.5-5.0); SODIUM 136 mmol/L (135-145); TOTAL PROTEIN 7.2 g/dL (6.7-8.2); TRIGLYCERIDES 89 mg/dL; VLDL CHOLESTEROL 18 mg/dL
--- NOTE | 2021-10-29 12:48 | MRI Report ---
PROCEDURE: Brain W/WO INDICATIONS: BRAIN MENINGIOMA CONTRAST: IV CONTRAST: Gadavist ml: 6.9 TECHNIQUE: Noncontrast axial T1 spin echo, axial T2 fast spin echo, sagittal and axial FLAIR, coronal T2 fast sp in echo, axial gradient echo, axial diffusion and ADC through the brain. After the administration of contrast, axial and coronal T1 spin echo with fat saturation through the brain. COMPARISON: Brain MRI dated 10/07/2020 FINDINGS: Image quality: Excellent. CSF spaces: Basal cisterns are patent. No extra-axial fluid collections. Ventricles are normal in size and shape. Brain: No midline shift. No intracranial bleeds. The dural based 10 mm low T2 intensity focus overl adrianna the left frontal lobe without enhancement is unchanged. No abnormal intracranial enhancement. T here is cerebral volume loss for age. There is periventricular white matter chronic small vessel isc hemic change. The brainstem appears normal. Diffusion-weighted images demonstrate no acute ischemic insults. No chronic ischemic insults. Normal intravascular flow voids are present. Skull and face: Calvarial marrow is normal in signal. Orbits appear normal. Sinuses: Sinuses and mastoids appear clear. IMPRESSION: 1. No change in small left frontal meningioma. 2. Mild volume loss and small vessel ischemic disease. Reviewed by: Anderson Bliss MD on 10/29/2021 11:47 AM ALANA Approved by: Anderson Bliss MD on 10/29/2021 11:47 AM ALANA Station ID: [id number]
[2021-10-29] MEDS ORDERED: GADOBUTROL 7.5 MMOL/7.5 ML VIAL IVP ONE (16:24)
== END 2021-10-29 08:45 | disposition home or self-care (01) ==
LOC: LAB 08:44 → DI 08:45
PROVIDERS: ATTEND Family Medicine
DX: D32.0 Benign neoplasm of cerebral meninges (principal); G31.89 Other specified degenerative diseases of nervous system; I67.82 Cerebral ischemia; E78.5 Hyperlipidemia, unspecified; I10 Essential (primary) hypertension
CPT/HCPCS: 36415; 70553; 80053; 80061; 85025; A9585; 83721

== ENCOUNTER 2021-12-28 21:51 | Emergency (ER) | payer MEDICARE, OTHER ==
[2021-12-28 22:33] LABS: BASOPHILS % (AUTO) 0.3 %; EOSINOPHILS % (AUTO) 0.1 %; HCT - HEMATOCRIT 34.7 % (37.0-47.0); HGB - HEMOGLOBIN 11.6 g/dL (12.0-16.0); LYMPHOCYTES # (AUTO) 1.1 10^3/uL (1.5-3.5); LYMPHOCYTES % (AUTO) 7.4 %; MEAN CORPUSCULAR HGB CONC 33.4 g/dL (32.0-36.0); MEAN CORPUSCULAR VOLUME 89.7 fL (81.0-99.0); MEAN PLATELET VOLUME 9.1 fL (7.9-10.8); MONOCYTES # (AUTO) 0.4 10^3/uL (0.0-1.0); MONOCYTES % (AUTO) 2.6 %; NEUTROPHILS # (AUTO) 13.6 10^3/uL (1.5-6.6); NEUTROPHILS % (AUTO) 89.2 %; PLT - PLATELET COUNT 268 10^3/uL (130-450); RED BLOOD COUNT 3.87 10^6/uL (4.20-5.40); WHITE BLOOD COUNT 15.3 x10^3/uL (4.8-10.8)
[2021-12-28 22:34] LABS: BILIRUBIN,URINE NEGATIVE (NEGATIVE); GLUCOSE, URINE (UA) NEGATIVE (NEGATIVE); KETONES,URINE (UA) NEGATIVE (NEGATIVE); LEUKOCYTE ESTERASE, URINE SMALL (NEGATIVE); NITRITE,URINE NEGATIVE (NEGATIVE); OCCULT BLOOD,URINE LARGE (NEGATIVE); PH,URINE 5.5 PH (5.0-7.5); PROTEIN,URINE TRACE mg/dL (NEGATIVE); UROBILINOGEN,URINE 0.2 (NORMAL) E.U./dL (NORMAL)
[2021-12-28 22:35] LABS: CLARITY,URINE CLOUDY (CLEAR)
[2021-12-28 22:41] LABS: BACTERIA,URINE Moderate /HPF (None Seen); RBC,URINE TNTC /HPF (0-5); SQUAMOUS EPITHELIAL CELL,UR RARE Squamous (<= Few)
[2021-12-28 22:45] LABS: ALBUMIN 4.5 g/dL (3.2-5.5); ALBUMIN/GLOBULIN RATIO 1.6 (1.0-2.2); BILIRUBIN,TOTAL 0.7 mg/dL (0.2-1.0); CALCIUM 9.3 mg/dL (8.5-10.3); CREATININE 0.7 mg/dL (0.4-1.0); POTASSIUM 3.8 mmol/L (3.5-5.0); TOTAL PROTEIN 7.4 g/dL (6.7-8.2)
--- NOTE | 2021-12-28 23:50 | ED Physician Documentation ---
PD HPI ABD PAIN - Stated complaint Stated Complaint: L SIDE PX - Chief complaint Chief Complaint: Abd Pain - History obtained from History obtained from: Patient - History of Present Illness Timing - onset: Enter time (18:30), Today Timing - details: Abrupt onset Pain level max: 9 Pain level now: 0 Quality: Pain Location: LLQ Radiation: Left flank Improved by: Other (nothing) Worsened by: Other (no exacerbating factors) Associated symptoms: Nausea, Vomiting. No: Fever, Diarrhea, Constipation Recently seen: Not recently seen - Additional information Additional information: c/o sudden onset left flank pain, LLQ pain at approximately 6:30 PM tonight after eating dinner. Pain was associated with nausea and vomiting in proportion to pain intensity. By the time of this evaluation, pain has nearly resolved. She has h/o kidney stone Review of Systems Constitutional: denies: Fever GI: reports: Abdominal Pain, Nausea, Vomiting. denies: Abdominal Swelling, Constipation, Diarrhea : denies: Dysuria, Frequency, Hematuria PD PAST MEDICAL HISTORY - Past Medical History Cardiovascular: High cholesterol Respiratory: None Endocrine/Autoimmune: None GI: Colon polyps : None HEENT: None Psych: None Musculoskeletal: None Derm: None - Past Surgical History Past Surgical History: Yes General: Colonoscopy Ortho: Other - Present Medications Home Medications: Ambulatory Orders Medication Instructions Recorded Confirmed Pravastatin Sodium 40 mg PO QPM 01/11/15 02/05/18 Nitrofurantoin Monohyd/M-Cryst 1 cap PO BID 02/05/18 02/05/18 [Macrobid 100 mg Capsule] Oxybutynin [Ditropan] 1 tab PO DAILY 02/05/18 02/05/18 Phenazopyridine HCl [Pyridium] 1 tab PO BID PRN 02/05/18 02/05/18 Acetaminophen/Cod 300/30 [Tylenol 1 - 2 each PO Q6HR PRN #14 tablet 12/29/21 #3] Ondansetron Odt [Zofran] 4 mg TL Q6H PRN #10 tablet 12/29/21 - Allergies Allergies/Adverse Reactions: Allergies Allergy/AdvReac Type Severity Reaction Status Date / Time No Known Drug Allergies Allergy Verified 12/28/21 22:02 - Social History Does the pt smoke?: No Smoking Status: Never smoker Does the pt drink ETOH?: Yes Does the pt have substance abuse?: No - Immunizations Immunizations are current?: Yes PD ED PE NORMAL - Vitals Vital signs reviewed: Yes - General General: Alert and oriented X 3, No acute distress, Well developed/nourished - Abdomen Abdomen: Soft, Non tender - Back Back: No CVA TTP - Derm Derm: Normal color, Warm and dry, No rash Results - Vitals Vitals: Oxygen O2 Source Room air - Labs Labs: Microbiology 12/28/21 22:24 Urine Culture - Final Urine,Clean Catch >100,000 COLONIES/ML Polymicrobial growth including potential pathogens. This is suggestive of skin or other contamination. Laboratory Tests 12/28/21 12/28/21 12/28/21 22:24 22:25 22:25 WBC 15.3 H RBC 3.87 L Hgb 11.6 L Hct 34.7 L MCV 89.7 MCH 30.0 MCHC 33.4 RDW 13.0 Plt Count 268 MPV 9.1 Neut # (Auto) 13.6 H Lymph # (Auto) 1.1 L [place] # (Auto) 0.4 Eos # (Auto) 0.0 Baso # (Auto) 0.0 Absolute Nucleated RBC 0.00 Nucleated RBC % 0.0 Sodium 140 Potassium 3.8 Chloride 103 Carbon Dioxide 26 Anion Gap 11.0 BUN 16 Creatinine 0.7 Estimated GFR (MDRD) 81 L Glucose 129 H Calcium 9.3 Total Bilirubin 0.7 AST 18 ALT 16 Alkaline Phosphatase 56 Total Protein 7.4 Albumin 4.5 Globulin 2.9 Albumin/Globulin Ratio 1.6 Lipase 35 Urine Color YELLOW Urine Clarity CLOUDY Urine pH 5.5 Ur Specific Sargeant >=1.030 H Urine Protein TRACE Urine Glucose (UA) NEGATIVE Urine Ketones NEGATIVE Urine Occult Blood LARGE H Urine Nitrite NEGATIVE Urine Bilirubin NEGATIVE Urine Urobilinogen 0.2 (NORMAL) Ur Leukocyte Esterase SMALL H Urine RBC TNTC H Urine WBC 6-10 H Ur Squamous Epith Cells RARE Squamous Urine Bacteria Moderate H Ur Microscopic Review INDICATED Urine Culture Comments INDICATED PD MEDICAL DECISION MAKING - ED course Complexity details: reviewed results, re-evaluated patient, considered differential, d/w patient ED course: HPI suggests renal colic. Symptoms have nearly resolved by the time of my H+P. leukocytosis (15.3) noted. UA with TNTC RBC. She also has h/o kidney stones. Strong suspicion of renal colic. At this time, alternative diagnoses of immediate concern are not likely enough to warrant emergent imaging. I am prescribing a short course of short-acting opioid pain medication for this patient. I have reviewed the patients BALLISTICIAN and no concerning findings were noted. I have discussed that the opioids are for short term therapy only, and will not be refilled from the ED Departure - Departure Disposition: 01 Home, Self Care Clinical Impression: Flank pain Condition: Good Instructions: ED Flank Pain Uncertain Cause Follow-Up: Amita Lockhart PA [Primary Care Provider] - Within 1 week Prescriptions: Acetaminophen/Cod 300/30 [Tylenol #3] 1 - 2 each PO Q6HR PRN #14 tablet PRN Reason: Pain Ondansetron Odt [Zofran] 4 mg TL Q6H PRN #10 tablet PRN Reason: Nausea / Vomiting Comments: I think it is very likely you are having renal colic, which is the pain associated with a kidney stone. This is based on the description/location of your pain, the urinalysis finding of a large amount of blood (which is expected with renal colic), and considering that you have a history of kidney stone. Because of the high likelihood of this explanation for your pain, and considering your symptoms have resolved without intervention (such as pain medication), a CT scan was not performed tonight. However, if your pain returns or if the diagnosis is in doubt, a CT scan can be performed in the outpatient setting (your primary care provider would order this at their discretion). Of course, if your pain returns and does not respond to the prescribed medications, or if you develop other concerning signs/symptoms (such as fever, rash), return to the ER for reevaluation. Prescriptions for ondansetron (anti nausea medication) and tylenol with codiene (for pain) have been electronically submitted to the [facility] pharmacy in [place]. I am prescribing a short course of narcotic pain medication for you. These are potentially dangerous and addictive medications that should be used carefully. These medications may constipate you. Take an unla-xul-girmhya stool softener (docusate) twice daily with plenty of water while taking these medications. If you go 24 hours without a bowel movement, take voba-iof-pxjaghc miralax, per package instructions. Do not drink or drive while taking these medications. If you received narcotic or sedating medications while in the emergency department, do not drive for 24 hours. Store this medication in a safe, secure place and out of reach of children. It is a violation of federal law to give or sell this medication to another person or to use in a manner other than prescribed. The ED will not refill narcotic prescriptions, including prescriptions lost or stolen. To dispose of unwanted medications: 1. The [facility] at [address] in [place] has a medication drop box. They accept prescription medications (in pill form) Wednesday through Wednesday 9:00 a.m. to 5:00 p.m. 2. The [facility] [employer] accepts prescription medications (in pill form only) for disposal year round. Call for more information. 3. Contact the [facility] for the next COUNTS INCLUDE 234 BEDS AT THE [facility] sponsored prescription drug collection event. , [phone], or [phone]; Discharge Date/Time: 12/29/21 00:26
[2021-12-29] MEDS ORDERED: ONDANSETRON ODT 4 MG Prepack 2 TL PRN (00:09)
[2021-12-29] MEDS ORDERED: HYDROcod/ACET 5/325 Prepack 4 PO STA (00:09)
[2021-12-29 00:23] VITALS: BP 151/67
== END 2021-12-29 00:26 | disposition home or self-care (01) ==
LOC: ED 21:51
DX: R10.9 Unspecified abdominal pain (principal)
CPT/HCPCS: 36415; 80053; 81001; 81003; 83690; 85025; 87086; 99283

== ENCOUNTER 2022-08-27 10:52 | Outpatient (CLI) | payer MEDICARE, OTHER ==
[2022-08-27 11:04] LABS: BASOPHILS % (AUTO) 0.1 %; EOSINOPHILS # (AUTO) 0.1 10^3/uL (0.0-0.7); HCT - HEMATOCRIT 38.1 % (37.0-47.0); HGB - HEMOGLOBIN 12.3 g/dL (12.0-16.0); LYMPHOCYTES # (AUTO) 2.1 10^3/uL (1.5-3.5); LYMPHOCYTES % (AUTO) 28.5 %; MEAN CORPUSCULAR HEMOGLOBIN 29.3 pg (27.0-31.0); MEAN CORPUSCULAR HGB CONC 32.3 g/dL (32.0-36.0); MEAN CORPUSCULAR VOLUME 90.7 fL (81.0-99.0); MEAN PLATELET VOLUME 8.6 fL (7.9-10.8); MONOCYTES # (AUTO) 0.4 10^3/uL (0.0-1.0); MONOCYTES % (AUTO) 5.1 %; NEUTROPHILS # (AUTO) 4.7 10^3/uL (1.5-6.6); PLT - PLATELET COUNT 306 10^3/uL (130-450); RED CELL DISTRIBUTION WIDTH 12.5 % (12.0-15.0); WHITE BLOOD COUNT 7.3 x10^3/uL (4.8-10.8)
[2022-08-27 11:23] LABS: ALBUMIN 4.2 g/dL (3.2-5.5); ALBUMIN/GLOBULIN RATIO 1.3 (1.0-2.2); ALKALINE PHOSPHATASE 64 IU/L (42-121); ALT ALANINE AMINOTRANSFERASE 22 IU/L (10-60); AST ASPARTATE AMINOTRANSFERASE 19 IU/L (10-42); BILIRUBIN,TOTAL 0.7 mg/dL (0.2-1.0); BUN - BLOOD UREA NITROGEN 13 mg/dL (6-20); CALCIUM 9.2 mg/dL (8.5-10.3); CARBON DIOXIDE - CO2 27 mmol/L (21-32); CHLORIDE 101 mmol/L (101-111); CHOL/HDL RATIO 3.2 (<4.4); CHOLESTEROL 201 mg/dL; CREATININE 0.6 mg/dL (0.4-1.0); GFR - MDRD 97 (>89); GLUCOSE 104 mg/dL (70-100); HDL CHOLESTEROL 62 mg/dL; LDL CHOLESTEROL,CALCULATED 124 mg/dL; POTASSIUM 3.9 mmol/L (3.5-5.0); SODIUM 139 mmol/L (135-145); TOTAL PROTEIN 7.4 g/dL (6.7-8.2); TRIGLYCERIDES 74 mg/dL; VLDL CHOLESTEROL 15 mg/dL
[2022-08-27 11:32] LABS: THYROID STIMULATING HORMONE 1.72 uIU/mL (0.34-5.60)
== END 2022-08-27 10:53 | disposition home or self-care (01) ==
LOC: LAB 10:52
PROVIDERS: ATTEND Physician Assistant
DX: I10 Essential (primary) hypertension (principal); E78.5 Hyperlipidemia, unspecified
CPT/HCPCS: 36415; 80053; 80061; 83721; 84443; 85025

== ENCOUNTER 2022-09-29 09:14 | Outpatient (CLI) | payer MEDICARE, OTHER ==
--- NOTE | 2022-09-29 16:11 | CT Report ---
PROCEDURE: HEAD WO INDICATIONS: BRAIN MENINGIOMA TECHNIQUE: Noncontrast 4.5 mm thick angled axial sections acquired from the foramen magnum to the vertex. For r adiation dose reduction, the following was used: automated exposure control, adjustment of mA and/or kV according to patient size. COMPARISON: MRI brain 10/29/2021 FINDINGS: Image quality: Excellent. The ventricular system and cortical sulci demonstrate atrophy, consistent for patient's stated age. There are areas of hypodensity in the periventricular and subcortical white matter. There is no acut e intra or extra-axial fluid collection. No acute hemorrhage or midline shift. Area of calcification along the frontal inner calvarial table is present corresponding to area of signal change on prior M RI corresponding to suspected left frontal meningioma. Brainstem is unremarkable. Globes are symmetrical. Sinuses are aerated. Osseous structures are intact. IMPRESSION: Calcification in the left frontal extra-axial space corresponding to area of previous meningioma, unc hanged. Reviewed by: Suzy Leal MD on 09/29/2022 4:10 PM PDT Approved by: Suzy Leal MD on 09/29/2022 4:10 PM PDT Station ID: [id number]
== END 2022-09-29 09:15 | disposition home or self-care (01) ==
LOC: DI 09:14
PROVIDERS: ATTEND Physician Assistant
DX: D32.0 Benign neoplasm of cerebral meninges (principal); G93.89 Other specified disorders of brain

== ENCOUNTER 2022-12-22 12:57 | Outpatient (CLI) | payer MEDICARE, OTHER ==
--- NOTE | 2022-12-23 09:27 | Mammography Report ---
BILATERAL DIGITAL SCREENING MAMMOGRAM 3D/2D WITH AUGMENTATION: 12/22/2022 CLINICAL: Routine screening. Comparison is made to exams dated: 12/18/2021 mammogram, 12/09/2020 mammogram, 12/15/2019 mammogram, 12/01 mammogram, 12/15/2017 mammogram, and 12/10/2016 mammogram - [facility]. Both breasts are heterogeneously dense, which may obscure small masses (category c / 51-75% glandular tissue). Bilateral breast implants are stable and intact. There are benign calcifications in the right breast . No significant masses, calcifications, or other findings are seen in either breast. There has been no significant interval change. IMPRESSION: BENIGN There is no mammographic evidence of malignancy. A 1 year screening mammogram is recommended. Based on the Tyrer Cuzick model (a risk assessment model) the patients lifetime risk is 4.8% and her 10 year risk is 0.0%. According to the ACR, ACS, and NCCN guidelines, an annual breast MRI exam kory g with mammogram is recommended if the patients lifetime risk is 20% or greater. This exam was interpreted at Station ID: [id number]. NOTE: For mammograms, a report in lay terms will be sent to the patient. Approximately 15% of breast malignancies will not be visualized mammographically. In the management of a palpable breast mass, a negative mammogram must not discourage biopsy of a clinically suspicious lesion. Electronically Signed By: Yasmin troncoso/tiera:12/23/2022 08:11:32 letter sent: No_Letter ACR BI-RADS Category 2: Benign Finding(s) 3342F PARENCHYMAL PATTERN: (D) - The breast(s) demonstrate(s) heterogeneously dense fibroglandular parenchy ma. BI-RADS CATEGORY: (2) - 2 Mammogram [id number] 1 year screening LATERALITY: (B)
== END 2022-12-22 12:58 | disposition home or self-care (01) ==
LOC: DI 12:57
DX: Z12.31 Encounter for screening mammogram for malignant neoplasm of breast (principal)

== ENCOUNTER 2022-12-22 12:57 | Outpatient (CLI) | payer MEDICARE, OTHER ==
--- NOTE | 2022-12-22 13:54 | DEXA Report ---
PROCEDURE: Dexa Spine and/or Hip INDICATIONS: OSTEOPENIA TECHNIQUE: Dual energy x-ray absorptiometry (DXA) was performed on a [employer] WiFi System. Regions measur ed are the AP Spine, femoral neck, and if needed forearm. COMPARISON: 11/11/2020, 12/27/2017, 12/26/2015 FINDINGS: Lumbar Spine: Bone Mineral Density 0.94 g/cm/cm,T score -2.0; osteopenia Left Femoral Neck: Bone Mineral Density 0.86 g/cm/cm, T score -1.2; Osteopenia Impression: By WHO criteria, this patient has osteopenia of the left femoral neck and lumbar spine Patients with diagnosis of osteoporosis or osteopenia should have regular bone mineral density assess ment. For those eligible for Medicare, routine testing is allowed once every 2 years. Testing frequ ency can be increased for patients who have rapidly progressing disease or for those who are receivin g medical therapy to restore bone mass. Reviewed by: Anderson Bliss MD on 12/22/2022 1:52 PM PDT Approved by: Anderson Bliss MD on 12/22/2022 1:52 PM PDT Station ID: [id number]
== END 2022-12-22 12:58 | disposition home or self-care (01) ==
LOC: DI 12:57
PROVIDERS: ATTEND Physician Assistant
DX: M85.89 Other specified disorders of bone density and structure, multiple sites (principal)

== ENCOUNTER 2023-12-24 10:16 | Outpatient (CLI) | payer MEDICARE, OTHER ==
--- NOTE | 2023-12-27 08:51 | Mammography Report ---
BILATERAL DIGITAL SCREENING MAMMOGRAM 3D/2D WITH AUGMENTATION: 12/24/2023 CLINICAL: Routine screening. Comparison is made to exams dated: 12/22/2022 mammogram, 12/09/2020 mammogram, 12/18/2021 mammogram, 12/01 mammogram, 12/19/2018 mammogram, and 12/15/2017 mammogram - [facility]. Both breasts are heterogeneously dense, which may obscure small masses (category c / 51-75% glandular tissue). Bilateral breast implants are stable and intact. There are benign calcifications in the right breast . No significant masses, calcifications, or other findings are seen in either breast. There has been no significant interval change. IMPRESSION: BENIGN There is no mammographic evidence of malignancy. A 1 year screening mammogram is recommended. Based on the Tyrer Cuzick model (a risk assessment model) the patient's lifetime risk is 4.3% and her 10 year risk is 0.0%. According to the ACR, ACS, and NCCN guidelines, an annual breast MRI exam kory g with mammogram is recommended if the patient's lifetime risk is 20% or greater. This exam was interpreted at Station ID: [id number]. NOTE: For mammograms, a report in lay terms will be sent to the patient. Approximately 15% of breast malignancies will not be visualized mammographically. In the management of a palpable breast mass, a negative mammogram must not discourage biopsy of a clinically suspicious lesion. Electronically Signed By: Jake riddle/tiera:12/24/2023 13:35:47 letter sent: No_Letter ACR BI-RADS Category 2: Benign Finding(s) 3342F PARENCHYMAL PATTERN: (D) - The breast(s) demonstrate(s) heterogeneously dense fibroglandular parenchy ma. BI-RADS CATEGORY: (2) - 2 RECOMMENDATION: (ANNUAL) - Recommend routine annual screening mammography. [id number] 1 year screening LATERALITY: (B)
== END 2023-12-24 10:17 | disposition home or self-care (01) ==
LOC: DI 10:16
DX: Z12.31 Encounter for screening mammogram for malignant neoplasm of breast (principal); R92.333 Mammographic heterogeneous density, bilateral breasts